=== PATIENT | male | born 1955 | race Caucasian/White ===

== ENCOUNTER 2020-04-02 21:11 | Outpatient (CLI) | payer MEDICARE | END 2020-04-02 21:12 | disposition home or self-care (01) | LOC: COV 21:11 | PROVIDERS: ATTEND Family Medicine | DX: M79.10 Myalgia, unspecified site (principal); R53.83 Other fatigue; R68.83 Chills (without fever); R19.7 Diarrhea, unspecified; R09.81 Nasal congestion; J34.89 Other specified disorders of nose and nasal sinuses; Z20.822 Contact with and (suspected) exposure to COVID-19 ==

== ENCOUNTER 2023-11-27 14:29 | Emergency (ER) | payer MEDICARE ==
--- NOTE | 2023-11-27 14:53 | ED Physician Documentation ---
PD HPI CHEST PAIN - Stated complaint Stated Complaint: CHEST PRESSURE,WEAKNESS,HIGH BP READING - Chief complaint Chief Complaint: Cardiac - History obtained from History obtained from: Patient - Additional information Additional information: 68-year-old gentleman with history of hypertension managed with amlodipine. Otherwise very healthy with no history of heart problems. He has had very mild chest pressure today, got sweaty while doing yard work and is felt weak and lightheaded. He felt fine yesterday. PD PAST MEDICAL HISTORY - Past Medical History Past Medical History: Yes Cardiovascular: Hypertension - Past Surgical History Past Surgical History: No - Allergies Allergies/Adverse Reactions: Allergies Allergy/AdvReac Type Severity Reaction Status Date / Time Sulfa (Sulfonamide Allergy Unknown Verified 11/27/23 14:33 Antibiotics) - Social History Does the pt smoke?: No Smoking Status: Never smoker Does the pt drink ETOH?: No ETOH Use: Liquor Does the pt have substance abuse?: No - POLST Patient has POLST: No PD ED PE NORMAL - Vitals Vital signs reviewed: Yes - General General: Alert and oriented X 3, No acute distress - HEENT HEENT: PERRL, EOMI - Neck Neck: Supple, no meningeal sign, No bony TTP - Cardiac Cardiac: Other (Rapid and irregular without murmur) - Respiratory Respiratory: No respiratory distress, Clear bilaterally - Abdomen Abdomen: Non tender - Back Back: No CVA TTP, No spinal TTP - Derm Derm: Normal color, Warm and dry - Extremities Extremities: No edema, No calf tenderness / cord - Neuro Neuro: Alert and oriented X 3, Normal speech Results - Vitals Vitals: Vital Signs - 24 hr 11/27/23 11/27/23 11/27/23 14:33 15:00 15:15 Temperature 36.8 C Heart Rate 67 126 H 86 Respiratory 18 17 17 Rate Blood Pressure 150/86 H 136/82 H 125/71 O2 Saturation 99 97 98 If not protocol : Oxygen Flow, liters/minute 11/27/23 11/27/23 11/27/23 15:38 16:30 17:07 Temperature Heart Rate 92 97 108 H Respiratory 14 20 Rate Blood Pressure 127/81 H 116/64 132/86 H O2 Saturation 96 95 100 If not protocol 4 : Oxygen Flow, liters/minute 11/27/23 11/27/23 11/27/23 17:17 17:22 17:23 Temperature Heart Rate 53 L 115 H 53 L Respiratory 13 18 15 Rate Blood Pressure 114/100 H 126/74 O2 Saturation 98 97 If not protocol : Oxygen Flow, liters/minute Oxygen O2 Source Room air - EKG (time done) 1439 EKG releavant findings:: EKG personally interpreted by author of this note. Relevant findings are: Rate: Rate (enter#) (125) Rhythm: Atrial fibrillation (w pvc) [place]: Normal QRS: Normal Ischemia: Non specific changes. No: ST elevation c/w ischemia - Labs Labs: Laboratory Tests 11/27/23 11/27/23 14:44 14:44 WBC 8.4 RBC 4.94 Hgb 16.0 Hct 48.4 MCV 98.0 H MCH 32.4 H MCHC 33.1 RDW 13.5 Plt Count 271 MPV 9.9 Neut # (Auto) 5.0 Lymph # (Auto) 2.4 [place] # (Auto) 0.8 Eos # (Auto) 0.2 Baso # (Auto) 0.1 Absolute Nucleated RBC 0.00 Nucleated RBC % 0.0 Sodium 138 Potassium 4.3 Chloride 103 Carbon Dioxide 27 Anion Gap 8.0 BUN 13 Creatinine 1.0 Estimated GFR (MDRD) 74 L Glucose 136 H Calcium 9.7 Magnesium 1.6 L Total Bilirubin 1.0 AST 28 ALT 24 Alkaline Phosphatase 59 Total Protein 7.3 Albumin 4.6 Globulin 2.7 Albumin/Globulin Ratio 1.7 TSH 1.06 Procedures - Procedural sedation Sedation prep: Informed consent, ASA 2 - mild disease Sedation Medications: propofol (100mg ivp x 1) Mallampati classification: I Patient status during sedation: Unresponsive Sedation recovery: Recovered uneventfully Time in sedation (Minutes): 15 - Cardioversion - Major 1 Time of attempt: 17:10 Indication: Tachyarrhythmia Risks, benefits, alternatives explained to: Pt CS via: Pads, AP approach Sync: Biphasic, 100j Post cardioversion rhythm: NSR Performed by: ED MD ABURTO Medical Decision Making - ED course ED course: 68-year-old gentleman presents with symptoms related to new onset atrial fibrillation which he has never had before. He has been symptomatic for less than 24 hours. He is a good candidate for the [place] protocol. Workup in the emergency department demonstrated normal CBC. CMP with mild hypomagnesemia which I did replete given that he is in A-fib and that may help, and mild hyperglycemia. He was rate controlled after the diltiazem. Then we did the procainamide drip, 1 g over 1 hour without change. Subsequently he consented to electrical cardioversion and was shocked out of atrial fibrillation on the first shock at 100 J and recovered without issue. Departure - Departure Disposition: 01 Home, Self Care Clinical Impression: Atrial fibrillation Qualifiers: Atrial fibrillation type: unspecified Qualified Code(s): I48.91 - Unspecified atrial fibrillation Condition: Good Record reviewed to determine appropriate education?: Yes Instructions: Atrial Fibrillation Dc Comments: You were seen today for new onset symptomatic atrial fibrillation. We initially rate controlled you and then were able to shock you out of it. Your magnesium level was slightly low, would recommend an [id number] magnesium supplement. You should also take a baby aspirin a day. Follow-up with your primary care physician with consideration for cardiology referral plus or minus stress testing and echocardiography. Return for new or worsening symptoms. Your primary care physician or project construction assistant manager may also discuss anticoagulation with you but take the aspirin in the interim. Forms: PCP List
[2023-11-27 15:02] LABS: BASOPHILS # (AUTO) 0.1 10^3/uL (0.0-0.1); BASOPHILS % (AUTO) 0.6 %; EOSINOPHILS # (AUTO) 0.2 10^3/uL (0.0-0.7); EOSINOPHILS % (AUTO) 1.8 %; HCT - HEMATOCRIT 48.4 % (42.0-52.0); LYMPHOCYTES # (AUTO) 2.4 10^3/uL (1.5-3.5); LYMPHOCYTES % (AUTO) 28.9 %; MEAN CORPUSCULAR HEMOGLOBIN 32.4 pg (27.0-31.0); MEAN CORPUSCULAR HGB CONC 33.1 g/dL (32.0-36.0); MEAN PLATELET VOLUME 9.9 fL (7.4-11.4); MONOCYTES # (AUTO) 0.8 10^3/uL (0.0-1.0); MONOCYTES % (AUTO) 9.1 %; NEUTROPHILS % (AUTO) 59.4 %; PLT - PLATELET COUNT 271 10^3/uL (130-450); RED BLOOD COUNT 4.94 10^6/uL (4.70-6.10); RED CELL DISTRIBUTION WIDTH 13.5 % (12.0-15.0); WHITE BLOOD COUNT 8.4 x10^3/uL (4.8-10.8)
[2023-11-27] MEDS: diltiaZEM INJ 5 MG/ML VIAL IVP STA (15:02)
[2023-11-27 15:27] LABS: MAGNESIUM 1.6 mg/dL (1.7-2.3)
[2023-11-27] MEDS: PROCAINAMIDE 1,000 MG in SODIUM CHLORIDE 0.9% 240 ML IV STA (15:30)
[2023-11-27 15:40] LABS: THYROID STIMULATING HORMONE 1.06 uIU/mL (0.34-5.60)
[2023-11-27 15:53] LABS: ALBUMIN 4.6 g/dL (3.2-5.5); ALBUMIN/GLOBULIN RATIO 1.7 (1.0-2.2); CALCIUM 9.7 mg/dL (8.5-10.3); POTASSIUM 4.3 mmol/L (3.5-4.5); TOTAL PROTEIN 7.3 g/dL (6.4-8.9)
[2023-11-27] MEDS: MAGNESIUM SULFATE 2 GRAM 2 GM/50 ML BAG IV ONE (15:53)
[2023-11-27] MEDS: PROPOFOL 200 MG/20 ML VIAL IVP STA (17:14)
[2023-11-27 17:29] VITALS: O2SAT 97
[2023-11-27 17:50] VITALS: BP 124/71
== END 2023-11-27 17:55 | disposition home or self-care (01) ==
LOC: ED 14:29
DX: I48.91 Unspecified atrial fibrillation (principal); I10 Essential (primary) hypertension
CPT/HCPCS: 36415; 80053; 83735; 84443; 85025; 92960; 93005; 96365; 96368; 96375; 99152; 99284; 99285; J2690